=== PATIENT | female | born 1950 | race Asian ===

== ENCOUNTER 2016-09-18 05:57 | Day surgery (SDC) | payer OTHER ==
[2016-09-17 09:52] VITALS: BMI 30.1
[~2016-09-18] VITALS: Ht 162.6 cm; Wt 91.5 kg
[2016-09-18] VITALS (8 sets, daily range): BP systolic 121–148; BP diastolic 57–80; PULSE 67–87; RESP 17–21; Ht 162.6 cm; Wt 91.5 kg
[~2016-09-18 05:57] MED LIST: CYCLOPENTOLATE 2% 2 ML OPH OPER SCH; DICLOFENAC 0.1% 2.5 ML OPH OPER SCH; DOXE25CA43 PO; LACTATED RINGER'S 1,000 ML IV SCH; LIDOCAINE 3.5% GEL TUBE OPER ONE; LISI20TA11 PO; LOVA10TA63 PO; METF-382 PO; MOXIFLOXACIN 0.5% 3 ML OPH OPER SCH; PHENYLephrine 10% 5 ML OPH OPER SCH; TETRACAINE 0.5% 15 ML OPH BOTH EYES ONE; TROPICAMIDE 1% 2 ML OPH OPER SCH
[2016-09-18] MEDS ORDERED: TOBRAMYCIN 0.3% 3.5 GM OPH OINT ONE (06:41)
[2016-09-18] MEDS ORDERED: LIDOCAINE 1% (MPF) 10 ML INJ ONE (06:41)
[2016-09-18] MEDS ORDERED: LIDOCAINE 1%/EPI (MDV) 20 ML INJ ONE (06:42)
[2016-09-18] MEDS ORDERED: NA HYALURONATE/CHONDROITIN 0.5 ML SYG ONE (06:42)
[2016-09-18] MEDS ORDERED: LIDOCAINE 2%/EPI 30 ML INJ ONE (06:46)
[2016-09-18] MEDS ORDERED: CARBACHOL 0.01% 1.5 ML OPH INJ ONE ×3 (06:58→08:56)
[2016-09-18] MEDS ORDERED: HYDR-3010 PO (07:02)
[2016-09-18] MEDS ORDERED: GABA300C16 PO (07:02)
[2016-09-18] MEDS ORDERED: MULTI PO (07:02)
[2016-09-18] MEDS ORDERED: TYL500 PO (07:02)
[2016-09-18] MEDS ORDERED: NA HYALURONATE/CHONDROITIN 0.5 ML SYG LEFT EYE ONE (07:15)
[2016-09-18] MEDS ORDERED: LIDOCAINE 2%/EPI (MDV) 20ML INJ INJ ONE (07:15)
[2016-09-18] MEDS ORDERED: CARBACHOL 0.01% 1.5 ML OPH INJ IO ONE (07:15)
[2016-09-18] MEDS ORDERED: FENTAnyl 50 MCG/ML VIAL ONE ×3 (07:28→08:37)
[2016-09-18] MEDS ORDERED: MIDAZOLAM 1 MG/ML 2 ML INJ ONE (07:28)
[2016-09-18] MEDS ORDERED: TRYPAN BLUE 0.5 ML SYG IO ONE (07:31)
[2016-09-18] MEDS ORDERED: CEFAZOLIN 1 GM INJ ONE (07:38)
[2016-09-18] MEDS ORDERED: DEXAMETHASONE 4 MG/ML 1 ML INJ ONE (07:43)
[2016-09-18] MEDS ORDERED: ONDANSETRON 4 MG INJ ONE (07:43)
[2016-09-18] MEDS ORDERED: FAMOTIDINE 20 MG INJ ONE (07:43)
[2016-09-18] MEDS ORDERED: TOBRAMYCIN 0.3% 3.5 GM OPH OINT LEFT EYE ONE (07:56)
[2016-09-18] MEDS ORDERED: CARBACHOL 0.01% 1.5 ML OPH INJ LEFT EYE ONE (08:12)
[2016-09-18] MEDS ORDERED: MEPERIDINE 25 MG INJ IV PRN (08:30)
[2016-09-18] MEDS ORDERED: ONDANSETRON 4 MG INJ IV PRN (08:30)
[2016-09-18] MEDS ORDERED: hydrALAzine 20 MG INJ IV PRN (08:30)
[2016-09-18] MEDS ORDERED: HYDROmorphONE (0.2 MG/ML) 10ML SYG IV PRN (08:30)
[2016-09-18] MEDS ORDERED: PROCHLORPERAZINE 10 MG INJ IV PRN (08:30)
--- NOTE | 2016-09-18 20:52 | OPR ---
DATE OF OPERATION: 09/18/2016 SURGEON: Urvashi Ledezma DO ANESTHESIOLOGIST: Josh Fragoso M.D. PREOPERATIVE DIAGNOSIS: Hypermature senile cataract, left eye. POSTOPERATIVE DIAGNOSIS: Hypermature senile cataract, left eye. PROCEDURE PLANNED: Cataract extraction via phacoemulsification and intraocular lens implantation, left eye. OPERATION PERFORMED: Extracapsular cataract extraction via phacoemulsification , intraocular lens implantation and anterior vitrectomy, left eye. ANESTHESIA: MAC. CONSENT: The patient was given different options of treatment of her condition , and she was explained all possible complications which include but not limited to infection, bleeding, loss of the nucleus, loss of lens fragments, loss of intraocular lens, dislocation of lens, vitreous prolapse, rupture of capsule bag, retinal detachment, loss of vision, loss of the eye as an organ. The patient understood and aware of all possible complications, and she knows she has risk due to high degree of maturity of her cataract and her hypertension and diabetes. DESCRIPTION OF PROCEDURE: The patient brought to operating room in stable condition, placed on operating table in supine position. Her left eye was prepped for cataract surgery in routine sterile technique. Then retractor placed on her eyelid, and clear cornea incision was performed with keratome, was followed by injection of lidocaine 2% with epinephrine preservative-free and Viscoat material. Then trypan blue dye was injected to stain anterior capsule. This was followed by irrigation, aspiration with balanced salt solution. Then additional Viscoat agent was installed into anterior chamber. Then a cystotome used to start capsulorrhexis. During this procedure, running over capsule occurred, uncontrollable in 3, 4 directions without any pressure. Therefore, Vannas scissors used to cut anterior capsule, but she still had peripheral tears in a few areas. . Then hydrodissection was done and nucleus rotated freely. It was prolapsed into anterior chamber. Then clear corneal incision was extended up to 5 to 6 mm , and loop and second instrument were used to extract the nucleus from anterior chamber. In addition the glide used to remove nucleus safely. Then irrigation , aspiration with balanced solution was performed to remove cortex, and additional Viscoat material was injected, which was followed by injection of Miostat and [employer] model L122UV power 18.00 diopter lens was injected, expiration date 2019 . During that manipulation, iris was prolapsed and vitreous as well was prolapsed. Therefore, limited anterior vitrectomy was performed. This was followed by centration of intraocular lens and placement of uninterrupted 10-0 nylon suture on the wound. Then TobraDex ointment was instilled, and eyelid was closed, and patch was placed over closed eyelid. The patient was transferred to recovery room in stable condition. Dictated By: URVASHI MADRID/MARTA Conf#: [id number] DID#: [id number] MTDD
== END 2016-09-18 09:45 | disposition home or self-care (01) ==
LOC: SDS 05:57
PROVIDERS: ATTEND Ophthalmology
DX: H25.22 Age-related cataract, morgagnian type, left eye (principal); I10 Essential (primary) hypertension; E11.9 Type 2 diabetes mellitus without complications
CPT/HCPCS: 66984; 82962; J0690; J1100; J2250; J2405; J3010; V2630; Z7512; Z7610